=== PATIENT | male | born 1945 | race Two or more races ===

== ENCOUNTER 2018-03-14 02:39 | Inpatient (IN) | payer MEDICARE ==
[~2018-03-14] VITALS: Ht 165.1 cm; Wt 53.5 kg
--- NOTE | 2018-03-14 02:57 | NUR ---
Notified warehouse supervisor for sitter, reports unable to provide one right now, states to use security.
[2018-03-14] MEDS ORDERED: LORAZEPAM 2 MG/1 ML VIAL IM ONE (03:00)
[2018-03-14] MEDS ORDERED: diphenhydrAMINE 50 MG/1 ML VIAL IM ONE (03:00)
[2018-03-14] MEDS ORDERED: LORAZEPAM 2 MG/1 ML VIAL ONE (03:04)
[2018-03-14] MEDS ORDERED: diphenhydrAMINE 50 MG/1 ML VIAL ONE (03:04)
[2018-03-14 03:17] LABS: BASOPHILS % (AUTO) 0.5 % (0.0-2.0); EOSINOPHILS # (AUTO) 0.2 K/uL (0.0-0.7); EOSINOPHILS % (AUTO) 2.5 % (0.0-7.0); HEMATOCRIT 29.5 % (36.7-47.1); LYMPHOCYTES # (AUTO) 1.8 K/uL (20.0-40.0); MEAN CORPUSCULAR HEMOGLOBIN 31.7 uug (23.8-33.4); MEAN CORPUSCULAR HGB CONC 34 g/dL (32.5-36.3); MEAN CORPUSCULAR VOLUME 93.2 fL (73.0-96.2); MONOCYTES # (AUTO) 1.1 K/uL (2.0-10.0); PLATELET COUNT (AUTO) 476 K/uL (152-348); RED BLOOD CELL COUNT(AUTO) 3.16 MIL/uL (4.06-5.63); WHITE BLOOD COUNT (AUTO) 8.1 K/uL (3.6-10.2)
[2018-03-14 03:20] LABS: CARBON DIOXIDE 32 mmol/L (21-32); CHLORIDE 96 mmol/L (98-107); CREATININE 0.9 mg/dL (0.6-1.3); GLUCOSE 236 mg/dL (74-106); UREA NITROGEN, BLOOD 10 mg/dL (7-18)
[2018-03-14 03:24] LABS: *BILIRUBIN,URIN NEGATIVE (NEGATIVE); *BLOOD, URINE NEGATIVE (NEGATIVE); *CLARITY,URINE CLEAR (CLEAR); *COLOR,URINE YELLOW (YELLOW); *KETONES,URINE NEGATIVE (NEGATIVE); *PROTEIN,URINE NEGATIVE (NEGATIVE); LEUKOCYTE ESTERASE ,URINE NEGATIVE (NEGATIVE); NITRITE, URINE NEGATIVE (NEGATIVE); UGLUCOSE NEGATIVE (NEGATIVE)
[2018-03-14 03:25] LABS: ALANINE AMINOTRANSFERASE 22 U/L (16-63); ALKALINE PHOSPHATASE 96 U/L (50-136); ASPARTATE AMINOTRANSFERASE 12 U/L (15-37); BILIRUBIN,DIRECT 0.1 mg/dL (0.0-0.2); BILIRUBIN,TOTAL 0.6 mg/dL (0.2-1.0); TOTAL PROTEIN, SERUM 8.2 g/dL (6.4-8.2)
[2018-03-14 03:27] LABS: BACTERIA,URINE NONE SEEN /HPF (NONE SEEN); RBC,URINE NONE SEEN /HPF (0-3); SQUAMOUS EPITHELIAL CELL,UR FEW /HPF (NONE SEEN); WBC,URINE 0-3 /HPF (0-3)
[2018-03-14 03:28] LABS: ETHANOL < 3 MG/DL (0-0)
[2018-03-14 03:29] LABS: *AMPHETAMINE, URINE NEGATIVE (NEGATIVE); *BARBITURATE, URINE NEGATIVE (NEGATIVE); *CANNABINOID, URINE NEGATIVE (NEGATIVE); *COCCAINE, URINE NEGATIVE (NEGATIVE); *OPIATE, URINE NEGATIVE (NEGATIVE); *PHENCYCLIDINE SCREEN,URINE NEGATIVE (NEGATIVE)
--- NOTE | 2018-03-14 03:30 | NUR ---
Pt sleeping, no acute signs of distress.
[2018-03-14 03:33] LABS: THYROID STIMULATING HORMONE 2.117 mIU/mL (0.358-3.740)
--- NOTE | 2018-03-14 04:52 | NUR ---
Pt medically cleared by Dr. Richardson.
--- NOTE | 2018-03-14 06:08 | NUR ---
Report given to Carolynn HUGHES M[facility].
[2018-03-14] MEDS ORDERED: MAGNESIUM HYDROXIDE 30 ML LIQUID UDC PO PRN (08:30)
[2018-03-14] MEDS ORDERED: MAG HYDROX/AL HYDROX/SIMETH 30 ML LIQUID UDC PO PRN (08:30)
--- NOTE | 2018-03-14 08:30 | NUR ---
GPS/RN- ADMISSION NOTE Patient admitted on 5249 per 5250 police received phone call of patient trying to jump from a bridge. patient confirms it was a suicide attempt. he cites insomnia as the main stressor. he has poor support system. Upon face to face assessment patient acknowledges attempt, verbalized he is tired of his situation, verbalized he lives in his car, currently has lack of support. patient is an everyday drinker. Has 4 beers a day. patient with reported insomnia. denies any hallucinations, no delusions. patient states he is loosing his memory as well thats why he is depressed. advised of hold and patient rights. questions and concerns addressed.
[2018-03-14] MEDS: LORAZEPAM 0.5 MG TABLET PO PRN ×2 (09:28→23:03)
--- NOTE | 2018-03-14 11:40 | NUR ---
GPS/RN- ordered patient labs this am, including hgba1c, elevated. accucheck performed. elevated 437 mg/dl repeat blood sugar 453 mg/dl. patient doesn't take any medications at this time that he can recall for diabetes. Paged Citlali Hicks,N.P. for orders.
[2018-03-14] MEDS ORDERED: INSULIN LISPRO 1000 UNITS/10 ML VIAL(HUMALOG) SQ ONE (11:43)
--- NOTE | 2018-03-14 11:44 | NUR ---
GPS/RN- Arcenio Amaro.Angie. aware of patient. she will place orders, no orders received at this time.
[2018-03-14] MEDS ORDERED: BLOOD SUGAR DIAGNOSTIC 1 EACH STRIP VI SCH ×2 (11:45)
[2018-03-14] MEDS ORDERED: DEXTROSE 50% 50 ML DISP.SYRIN IV PRN (11:45)
[2018-03-14] MEDS ORDERED: INSULIN REGULAR, HUMAN 300 UNIT/3 ML VIAL SQ ONE (12:15)
[2018-03-14] MEDS ORDERED: no home meds (12:40)
[2018-03-14] MEDS: SERTRALINE HCL 50 MG TABLET PO SCH (12:49)
[2018-03-14 15:52] VITALS: BP 108/66
--- NOTE | 2018-03-14 16:00 | NUR ---
Initial Discharge Instructions: Patient was renting a room in his aunt Enriqueta's house [[address] [place] [address]; [phone]]. Per pt, he does not want to return there upon discharge. Instead, he would like to go to his "friend's house." Patient was unwilling to provide information about this friend including name, address, and telephone number. ROSEMARY will continue to collaborate with the jo ann and regarding most appropriate discharge plans for this patient. SW will form a safe and proper discharge plan.
--- NOTE | 2018-03-14 16:30 | NUR ---
Gps/Bottom Hoop Driver- Kept on 1:1 Nursing supervision for safety, gaits unsteady and tremors noted , shaky when initiating simple tasks, frequency in urination noted , toileted as needed..Monitored closely for needs ans safety. Fall precautions in progress.
[2018-03-14] MEDS: INSULIN REGULAR, HUMAN 300 UNIT/3 ML VIAL SQ PRN (17:01)
[2018-03-14] MEDS: BLOOD SUGAR DIAGNOSTIC 1 EACH STRIP VI SCH ×2 (17:02→20:50)
[2018-03-14 20:52] VITALS: BP 131/73
[2018-03-14] MEDS: MIRTAZAPINE 15 MG TABLET PO SCH (21:06)
[2018-03-14] MEDS: TAMSULOSIN HCL 0.4 MG CAP.SR.24H PO SCH (21:07)
[2018-03-14] MEDS: INSULIN REGULAR, HUMAN 300 UNITS/3 ML VIAL SQ PRN (21:08)
[2018-03-14] MEDS: ACETAMINOPHEN 325 MG TABLET PO PRN (23:03)
[2018-03-14] MEDS: TEMAZEPAM 7.5 MG CAPSULE PO PRN (23:53)
--- NOTE | 2018-03-15 01:00 | NUR ---
Pt WAS CONSTANTLY RESTLESS AND TRYING TO GET OUT OF BED. OFFERED AND ADMINISTERED ATIVAN 0.5 MG PO PRN FOR ANXIETY AND TYLENOL 650 MG PO PRN. MED WAS NOT EFFECTIVE AND Pt STILL UNABLE TO SLEEP. OFFERED AND ADMINISTERED RESTORIL 7.5 MG PO PRN FOR SLEEP WITH GOOD EFFECT. Pt CURRENTLY SLEEPING WITH NO DISTRESS NOTED. 1:1 SITTER AT BEDSIDE FOR SAFETY.
[2018-03-15] MEDS: BLOOD SUGAR DIAGNOSTIC 1 EACH STRIP VI SCH ×4 (06:34→20:17)
[2018-03-15 07:30] VITALS: BP 101/59
[2018-03-15] MEDS: INSULIN REGULAR, HUMAN 300 UNIT/3 ML VIAL SQ PRN ×2 (09:49→12:38)
[2018-03-15] MEDS: SERTRALINE HCL 50 MG TABLET PO SCH (13:25)
[2018-03-15] MEDS: ACETAMINOPHEN 325 MG TABLET PO PRN (14:56)
[2018-03-15] MEDS: LORAZEPAM 0.5 MG TABLET PO PRN (14:56)
[2018-03-15 15:26] VITALS: BP 108/52
--- NOTE | 2018-03-15 16:02 | NUR ---
Patient on 1:1 sitter. Patient ambulates with steady gait with generalized weakness. Minimal assist provided. Needs provided. Ate 50% of meal this am and 100% lunch. Patient is cooperative and redirectable. Blood sugar monitoring and maintain as stable. No c/o SI noted. Will monitor.
[2018-03-15 20:09] VITALS: BP 114/77
[2018-03-15] MEDS: TAMSULOSIN HCL 0.4 MG CAP.SR.24H PO SCH (20:12)
[2018-03-15] MEDS: MIRTAZAPINE 15 MG TABLET PO SCH (20:13)
[2018-03-15] MEDS: INSULIN REGULAR, HUMAN 300 UNITS/3 ML VIAL SQ PRN (20:18)
[2018-03-15] MEDS ORDERED: INSULIN GLARGINE,HUM 300 UNITS/3 ML CARTRIDGE SQ SCH (21:00)
[2018-03-15] MEDS: TEMAZEPAM 7.5 MG CAPSULE PO PRN (21:48)
[2018-03-16] MEDS: BLOOD SUGAR DIAGNOSTIC 1 EACH STRIP VI SCH ×4 (06:32→20:04)
[2018-03-16 07:30] VITALS: BP 92/50
[2018-03-16] MEDS: INSULIN REGULAR, HUMAN 300 UNIT/3 ML VIAL SQ PRN ×3 (09:47→17:45)
[2018-03-16] MEDS: ACETAMINOPHEN 325 MG TABLET PO PRN ×2 (10:53→23:37)
[2018-03-16] MEDS: LORAZEPAM 0.5 MG TABLET PO PRN ×2 (10:53→19:43)
--- NOTE | 2018-03-16 12:00 | NUR ---
Pt WAS CLIMBING UP THE TABLE IN THE ACTIVITY ROOM BY NURSE AND 1:1 SITTER. NURSING STAFF IMMEDIATELY ASSISTED Pt TO GET OFF THE TABLE SAFELY AND BACK ON A CHAIR. Pt IS NOW SITTING ON MARY-CHAIR FOR SAFETY. Pt TO BE WITH SITTER AT ALL TIMES AND NOT ALLOWED TO AMBULATE ANYWHERE WITHOUT CLOSE OBSERVATION. WILL NOTIFY PSYCHIATRIST REGARDING BEHAVIOR.
[2018-03-16] MEDS: SERTRALINE HCL 50 MG TABLET PO SCH (13:05)
[2018-03-16 15:50] VITALS: BP 99/56
--- NOTE | 2018-03-16 19:07 | NUR ---
Patient wanted to jump out of bed stated that he cannot take it anymore and also stated that he could not sleep.
[2018-03-16] MEDS: TAMSULOSIN HCL 0.4 MG CAP.SR.24H PO SCH (20:05)
[2018-03-16] MEDS: INSULIN GLARGINE,HUM 300 UNITS/3 ML CARTRIDGE SQ SCH (20:08)
[2018-03-16] MEDS: MIRTAZAPINE 15 MG TABLET PO SCH (20:10)
[2018-03-16 20:32] VITALS: BP 105/63
[2018-03-16] MEDS: TEMAZEPAM 7.5 MG CAPSULE PO PRN (21:34)
[2018-03-17] MEDS: BLOOD SUGAR DIAGNOSTIC 1 EACH STRIP VI SCH ×4 (06:32→20:33)
[2018-03-17 07:30] VITALS: BP 95/59
--- NOTE | 2018-03-17 09:06 | NUR ---
GPS/RN- patient sitting up in gerichair in activity room with sitter at arm length. patient continues alert and oriented to person place time and situation. patient with depressed affect, patient denies any intent to hurt himself yesterday, verbalized "it was just a panic attack". patient remains guarded and superficial at this time about suicidal ideation, remains with sitter for high risk behavior. continue to monitor
[2018-03-17] MEDS: INSULIN REGULAR, HUMAN 300 UNIT/3 ML VIAL SQ PRN ×4 (09:18→20:43)
[2018-03-17] MEDS: SERTRALINE HCL 50 MG TABLET PO SCH (12:34)
[2018-03-17] MEDS: LORAZEPAM 0.5 MG TABLET PO PRN (14:49)
[2018-03-17 17:17] VITALS: BP 98/59
[2018-03-17 20:02] VITALS: BP 109/61
[2018-03-17] MEDS: TAMSULOSIN HCL 0.4 MG CAP.SR.24H PO SCH (20:27)
[2018-03-17] MEDS: INSULIN GLARGINE,HUM 300 UNITS/3 ML CARTRIDGE SQ SCH (20:43)
[2018-03-17] MEDS ORDERED: MIRTAZAPINE 15 MG TABLET PO SCH (21:00)
[2018-03-18] MEDS: LORAZEPAM 0.5 MG TABLET PO PRN ×2 (03:13→09:15)
[2018-03-18] MEDS: ACETAMINOPHEN 325 MG TABLET PO PRN (03:13)
--- NOTE | 2018-03-18 03:21 | NUR ---
GPS: Anxious at this time and requesting for a sleeping pill. Unable to administer at this time due to the time. Ativan 0.5mg given PO instead for anxiety. Re-assured prn. Will monitor effectiveness. 1:1 sitter for safety. No episodes of trying to jump off from table noted.
[2018-03-18] MEDS: BLOOD SUGAR DIAGNOSTIC 1 EACH STRIP VI SCH ×4 (06:35→20:11)
[2018-03-18 07:30] VITALS: BP 127/73
[2018-03-18] MEDS: INSULIN REGULAR, HUMAN 300 UNIT/3 ML VIAL SQ PRN ×3 (08:02→16:17)
[2018-03-18] MEDS ORDERED: SERTRALINE HCL 50 MG TABLET PO SCH (13:00)
--- NOTE | 2018-03-18 14:18 | NUR ---
Discharge Planning Note: Pediatrician Active Practice met with patient at bedside to discuss discharge planning. Patient appeared depressed, anxious, and verbalized vague SI, as evidenced by his statements of, "My mind won't make it...I just want to lay down an now." SW discussed issues of concern and provided reassurance to the patient. Patient was able to contract for safety. SW explored options of SNF vs B&C placement with the patient. Pt stated, "Whatever you can find for me, I'll think about it." SW will continue collaborating with the patient and will begin looking for SNF and B&C placement.
[2018-03-18 15:51] VITALS: BP 115/60
--- NOTE | 2018-03-18 16:26 | NUR ---
GPS/RN- SITTER JUSTIFICATION Patient continues guarded and superficial about suicidal ideation, recent attempt to jump off dining room table and his own bed in attempt to hurt self, patient evasive when assessed for SI, verbalizing he just had a panic attack thats all , judgement questionable. behavior unpredictable. continue with malissater
[2018-03-18] MEDS ORDERED: QUETIAPINE FUMARATE 25 MG TABLET PO SCH (20:00)
[2018-03-18] MEDS: INSULIN GLARGINE,HUM 300 UNITS/3 ML CARTRIDGE SQ SCH (20:11)
[2018-03-18] MEDS: TAMSULOSIN HCL 0.4 MG CAP.SR.24H PO SCH (20:11)
[2018-03-18 20:46] VITALS: BP 114/76
[2018-03-18] MEDS: TEMAZEPAM 7.5 MG CAPSULE PO PRN (22:30)
[2018-03-19] MEDS: LORAZEPAM 0.5 MG TABLET PO PRN ×2 (00:12→08:40)
[2018-03-19] MEDS: BLOOD SUGAR DIAGNOSTIC 1 EACH STRIP VI SCH ×4 (06:38→20:40)
[2018-03-19 07:30] VITALS: BP 107/71
[2018-03-19 08:09] LABS: BASOPHILS % (AUTO) 0.7 % (0.0-2.0); EOSINOPHILS # (AUTO) 0.2 K/uL (0.0-0.7); EOSINOPHILS % (AUTO) 3.1 % (0.0-7.0); HEMATOCRIT 27.9 % (36.7-47.1); HEMOGLOBIN 9.6 g/dL (12.5-16.3); LYMPHOCYTES # (AUTO) 1.6 K/uL (20.0-40.0); LYMPHOCYTES % (AUTO) 26.9 % (20.5-51.5); MEAN CORPUSCULAR HEMOGLOBIN 32.1 uug (23.8-33.4); MEAN CORPUSCULAR HGB CONC 34 g/dL (32.5-36.3); MEAN CORPUSCULAR VOLUME 93.1 fL (73.0-96.2); MONOCYTES % (AUTO) 16.8 % (0.0-11.0); NEUTROPHILS # (AUTO) 3.1 K/uL (1.8-8.9); NEUTROPHILS % (AUTO) 52.5 % (38.5-71.5); PLATELET COUNT (AUTO) 510 K/uL (152-348); RED BLOOD CELL COUNT(AUTO) 2.99 MIL/uL (4.06-5.63)
[2018-03-19 08:11] LABS: CARBON DIOXIDE 30 mmol/L (21-32); CHLORIDE 96 mmol/L (98-107); CREATININE 0.9 mg/dL (0.6-1.3); GLUCOSE 276 mg/dL (74-106); POTASSIUM 4.5 mmol/L (3.5-5.1); UREA NITROGEN, BLOOD 12 mg/dL (7-18)
[2018-03-19] MEDS: INSULIN REGULAR, HUMAN 300 UNIT/3 ML VIAL SQ PRN ×3 (08:40→17:45)
[2018-03-19 09:37] LABS: EOSINOPHILS % (MANUAL) 3 % (0-8); MONOCYTES % (MANUAL) 14 % (2-10); NEUTROPHILS % (MANUAL) 55 % (42-75)
[2018-03-19 09:38] LABS: LYMPHOCYTES % (MANUAL) 28 % (20-40)
[2018-03-19] MEDS ORDERED: INSU100V7 SQ (12:44)
[2018-03-19] MEDS ORDERED: SERTRALINE HCL 50 MG TABLET PO SCH (13:00)
[2018-03-19 15:53] VITALS: BP 108/66
[2018-03-19] MEDS: ACETAMINOPHEN 325 MG TABLET PO PRN (18:56)
[2018-03-19] MEDS: TAMSULOSIN HCL 0.4 MG CAP.SR.24H PO SCH (20:33)
[2018-03-19] MEDS: QUETIAPINE FUMARATE 25 MG TABLET PO SCH (20:33)
[2018-03-19] MEDS: INSULIN REGULAR, HUMAN 300 UNITS/3 ML VIAL SQ PRN (20:44)
[2018-03-19 21:36] VITALS: BP 114/68
--- NOTE | 2018-03-19 22:00 | NUR ---
received to care, watching tv with peers, pleasant upon approach. denies SI, or desire to harm self. compliant with medications and staff direction. as of 2199, he remains awake, in bed. no distress noted.
--- NOTE | 2018-03-19 22:00 | NUR ---
ADDENDUM; 1;1 SITTER AT SIDE, AT ALL TIMES, FOR SAFETY.
[2018-03-19] MEDS: TEMAZEPAM 7.5 MG CAPSULE PO PRN (22:52)
--- NOTE | 2018-03-19 22:52 | NUR ---
PRN restoril, given for insomnia.
--- NOTE | 2018-03-19 23:30 | NUR ---
appears to be asleep. no distress noted.
[2018-03-20] MEDS: LORAZEPAM 0.5 MG TABLET PO PRN ×3 (04:28→16:47)
--- NOTE | 2018-03-20 04:28 | NUR ---
PRN ativan given for anxiety.
[2018-03-20] MEDS: BLOOD SUGAR DIAGNOSTIC 1 EACH STRIP VI SCH ×4 (06:50→21:03)
--- NOTE | 2018-03-20 07:01 | NUR ---
slept 4.75 hours
[2018-03-20 09:00] VITALS: BP 121/73
[2018-03-20] MEDS: INSULIN REGULAR, HUMAN 300 UNIT/3 ML VIAL SQ PRN ×3 (11:32→21:05)
[2018-03-20] MEDS: SERTRALINE HCL 100 MG TABLET PO SCH (11:38)
[2018-03-20] MEDS ORDERED: SERTRALINE HCL 50 MG TABLET PO SCH (13:00)
--- NOTE | 2018-03-20 13:35 | NUR ---
C/O ANXIETY MEDICATED WITH ATIVAN NOW IN BED RESTING QUIETLY ATIVAN WITH MODERATE EFFECT. WITH SITTER AT BEDSIDE Addendum: 03/20/18 at 1355 by Susana Hi RN THIS CHARTING ENTERD BY GERMAN HUGHES NOT MG
[2018-03-20] MEDS ORDERED: DEXTROSE 50% 50 ML DISP.SYRIN IV PRN (14:45)
[2018-03-20 16:00] VITALS: BP 132/65
[2018-03-20] MEDS: TAMSULOSIN HCL 0.4 MG CAP.SR.24H PO SCH (21:03)
[2018-03-20] MEDS: QUETIAPINE FUMARATE 25 MG TABLET PO SCH (21:03)
--- NOTE | 2018-03-20 22:00 | NUR ---
received to care, isolative, lying in bed, pleasant upon approach. denies SI, or desire to harm self. remains evasive when questioned. compliant with medications and staff direction. as of 2199, he appears to be asleep. no distress noted. will continue to monitor clsoely.
[2018-03-21] MEDS: LORAZEPAM 0.5 MG TABLET PO PRN ×2 (04:51→11:16)
--- NOTE | 2018-03-21 04:51 | NUR ---
PRN ativan given for anxiety.
--- NOTE | 2018-03-21 06:00 | NUR ---
slept 7.5 hours.
[2018-03-21] MEDS: BLOOD SUGAR DIAGNOSTIC 1 EACH STRIP VI SCH ×2 (06:32→13:18)
[2018-03-21] MEDS: INSULIN REGULAR, HUMAN 300 UNIT/3 ML VIAL SQ PRN ×2 (08:33→13:03)
--- NOTE | 2018-03-21 09:54 | NUR ---
Discharge Note: Patient will be discharged to [facility] [[address], [place] [address]; ] via ambulance. Spoke with Juan Miguel and Raquel at the facility who state they are ready to accept the patient today. Patient will be in room 204B. Patient is aware and agreeable with discharge plans and denies SI/HI. Attempted to reach pts Aunt, Enriqueta Mora ([phone]) to alert about patients discharge; however there was no answer, and SW left a message. Patient will follow-up at the facility with Dr. Francois (User Experience Lead) and Dr. Gunn (Psychiatrist) Addendum: 03/21/18 at 1005 by FREYA RILEY Patient was provided with a brief substance abuse intervention and was given referrals to [facility] , [facility] ([phone]) and [facility]. ([phone]). Patient was given outpatient Mental Health resources to [facility] , [facility] , and the National Suicide Prevention Lifeline .
[2018-03-21] MEDS: ACETAMINOPHEN 325 MG TABLET PO PRN (10:18)
[2018-03-21 11:37] VITALS: BP 95/59
[2018-03-21] MEDS: SERTRALINE HCL 100 MG TABLET PO SCH (13:07)
== END 2018-03-21 13:20 | DRG 885 ==
LOC: ER 02:41 → GPS 06:11
PROVIDERS: ADMIT Psychiatry & Neurology Psychosomatic Medicine; ATTEND Registered Nurse
DX: F33.3 Major depressive disorder, recurrent, severe with psychotic symptoms (principal); E11.65 Type 2 diabetes mellitus with hyperglycemia; E44.0 Moderate protein-calorie malnutrition; Z68.1 Body mass index [BMI] 19.9 or less, adult; E87.1 Hypo-osmolality and hyponatremia; Z59.0 Homelessness; G47.00 Insomnia, unspecified; E86.0 Dehydration; N40.1 Benign prostatic hyperplasia with lower urinary tract symptoms; R33.8 Other retention of urine; F10.10 Alcohol abuse, uncomplicated; D64.9 Anemia, unspecified; I70.0 Atherosclerosis of aorta
CPT/HCPCS: 36415; 71045; 80307; 84443; 85025; 85730; 93005; 97116; A4663; G0480; J1200; J1815; J2060